=== PATIENT | male | born 1970 | race Caucasian/White ===

== ENCOUNTER 2019-02-03 10:02 | Outpatient (CLI) | payer OTHER, SELFPAY ==
[2019-02-03 11:52] LABS: Cholesterol 257 mg/dL (50-200); Glucose 93 mg/dL (70-100); HDL Cholesterol 51 mg/dL (40-60); LDL CHOLESTEROL 187 mg/dL (<100); Triglyceride 120 mg/dL (30-150)
[2019-02-03 13:38] LABS: CREATININE 0.99 mg/dL (0.70-1.30)
== END 2019-02-03 10:22 ==
PROVIDERS: PCP Family Medicine; Visit Provider Family Medicine
DX: Z00.00 Encounter for general adult medical examination without abnormal findings (principal); E78.5 Hyperlipidemia, unspecified; I10 Essential (primary) hypertension
CPT/HCPCS: 36415; 80061; 82947; 83721; 82565

== ENCOUNTER 2019-03-24 00:34 | Outpatient (CLI) | payer OTHER, SELFPAY ==
--- NOTE | 2019-03-24 07:10 | MERGEMPI_ITS ---
*[facility]* *[facility]* [address] [place] [address] Myocardial Perfusion Imaging - SPECT Regadenoson Date of study: 03/24/2019 *PATIENT PRESENTATION* Height: 182.9cm (72in) Blood Pressure: Weight: 104.5kg (230lb) BSA: 2.33m^2 Referring physician: Den Hooks Ordering physician: Ben Resendiz Impressions: Normal myocardial perfusion and contraction after pharmacological stress. Summary: 1. Myocardial perfusion imaging: No myocardial perfusion defects noted. 2. The calculated left ventricular ejection fraction after stress: 50%. LV global systolic function is low normal. No left ventricular regional motion abnormality. 3. Stress ECG conclusions: The stress ECG is indeterminate due to baseline left bundle branch block. 4. Baseline ECG: Normal sinus rhythm with left bundle branch block. Indication: R07.9, Appropriate Use Criteria: M (May be appropriate). History: REASON FOR VISIT: LEFT BBB FOUND ON EKG DURING PCP VISIT WITH DR. RESENDIZ. PT DENIES ANY ISSUES WITH CHEST PAINS. PT REPORTS HIS LATE PATERNAL GRANDFATHER HAD A QUADRUPLE BIPASS. HIS FATHER HAS HIGH CHOLESTEROL. Risk factors: Family history of coronary artery disease. Obesity. Dyslipidemia. ALLERGIES: NO KNOWN DRUG ALLERGIES. MEDICATIONS: NO SCHEDULED MEDICATIONS. Imaging Technique: Protocol: Regadenoson. Acquisition: Gated SPECT; 1 day - rest/stress. The patient was imaged in the supine position. Attenuation correction used. Isotope administration: - Rest. Tc[99m]-sestamibi. Dose: 11.3mCi. Injection time: 09:25 AM. Injection to stress time: 00:45. - Stress. Tc[99m]-sestamibi. Dose: 36.2mCi. Injection time: 11:20 AM. 1-2 min before end of exercise Baseline ECG: SINUS RHYTHM. LEFT BUNDLE BRANCH BLOCK. HR 58 BPM. Normal sinus rhythm with left bundle branch block. Stress protocol: +--------+--+ + + !Stage !HR!BP (mmHg) !Comments ! +--------+--+ + + !Baseline!58!138/90 (106)! ! +--------+--+ + + !1 min !95!170/82 (111)!Inject Regadenoson.! +--------+--+ + + !3 min !79!148/80 (103)! ! +--------+--+ + + !6 min !73!138/80 (99) ! ! +--------+--+ + + * Stress results: The rate-pressure product for the peak heart rate and blood pressure was 43585lo Hg/min. Stress ECG: STRESS TEST ENDED IN 7 MINUTES & 24 SECONDS. PT EXPERIENCED NO SIGNIFICANT SIDE EFFECTS FROM LEXISCAN INJECTION. NORMAL HEART RATE AND BLOOD PRESSURE RESPONSE TO LEXISCAN INJECTION. NO ECTOPY. NO ANGINA. LEFT BBB AT BASELINE. NO SIGNIFICANT CHANGES IN ST SEGMENTS SEEN. The stress ECG is indeterminate due to baseline left bundle branch block. Myocardial perfusion: Imaging information: gated. The image quality was good. Left ventricular size is normal. No myocardial perfusion defects noted. Ventricular Function (Wall Motion): The calculated left ventricular ejection fraction after stress: 50%. LV global systolic function is low normal. No left ventricular regional motion abnormality. Study data: Den Hooks MD supervised and was readily available during the procedure. This study was interpreted by [facility]. Study status: Routine. Consent: The risks, benefits, and alternatives to the procedure were explained to the patient and informed consent was obtained. Procedure: Initial setup. A baseline ECG was recorded. Surface ECG leads and manual cuff blood pressure measurements were monitored. Heart sounds: Normal. Lung sounds: Normal. Regadenoson stress test. Stress testing was performed, with regadenoson by intravenous bolus, for a total dose of 0.4mgover 10.00sec, followed by a 5ml saline flush. The infusion was terminated due to per protocol. The patient was unable to exercise due to left bundle branch block. Study completion: All catheters inserted during the procedure were removed. The patient tolerated the procedure well and was discharged from the lab. Discharge: The patient left the laboratory in stable condition. Birthdate: Patient birthdate: 1970. Sex: Gender: male. Study date: Study date: 03/24/2019. Study time: 00:01 AM. Signature Documentation: - The imaging portion of this study was interpreted by [employer] Den Hooks MD. - The Stress ECG portion of this study was interpreted by Den Hooks MD. Electronically signed by Den Hooks 03/24/2019 14:00
[2019-03-24] MEDS: Regadenoson 0.4 MG/5 ML SYR IVP (11:45)
== END 2019-03-24 00:54 ==
PROVIDERS: PCP Family Medicine; Visit Provider Family Medicine
DX: R07.9 Chest pain, unspecified (principal); I44.7 Left bundle-branch block, unspecified; I10 Essential (primary) hypertension; E78.5 Hyperlipidemia, unspecified; Z82.49 Family history of ischemic heart disease and other diseases of the circulatory system
CPT/HCPCS: 78452; 93017; J2785

== ENCOUNTER 2019-12-01 07:44 | Outpatient (CLI) | payer OTHER, SELFPAY ==
[2019-12-01 09:03] LABS: Calculated LDL 173 mg/dL (<100); Cholesterol 243 mg/dL (<200); HDL Cholesterol 50 mg/dL (40-60); Triglyceride 101 mg/dL (<150)
== END 2019-12-01 08:04 ==
PROVIDERS: PCP Family Medicine; Visit Provider Internal Medicine Cardiovascular Disease
DX: E78.5 Hyperlipidemia, unspecified (principal)
CPT/HCPCS: 36415; 80061

== ENCOUNTER 2020-03-29 02:33 | Outpatient (CLI) | payer OTHER, SELFPAY ==
[2020-03-29 10:07] LABS: Calculated LDL 98 mg/dL (<100); Cholesterol 168 mg/dL (<200); HDL Cholesterol 53 mg/dL (40-60); Triglyceride 87 mg/dL (<150)
== END 2020-03-29 02:53 ==
PROVIDERS: PCP Family Medicine; Visit Provider Internal Medicine Cardiovascular Disease
DX: E78.5 Hyperlipidemia, unspecified (principal)
CPT/HCPCS: 36415; 80061

== ENCOUNTER 2020-10-12 20:56 | Outpatient (REF) | payer OTHER, SELFPAY ==
[2020-10-12 22:00] LABS: Uric Acid 5.1 mg/dL (3.5-7.2)
== END 2020-10-12 21:16 ==
LOC: LBN 20:56
PROVIDERS: PCP Family Medicine; Visit Provider Physician Assistant
DX: M79.674 Pain in right toe(s) (principal)
CPT/HCPCS: 84550

== ENCOUNTER 2021-01-03 13:03 | Outpatient (REF) | payer OTHER, SELFPAY ==
[2021-01-03 22:19] LABS: CREATININE 1.1 mg/dL (0.70-1.30); Potassium 3.9 mmol/L (3.5-5.1)
== END 2021-01-03 13:04 | disposition home or self-care (01) ==
LOC: LBN 13:03
PROVIDERS: PCP Family Medicine; Visit Provider Family Medicine
DX: I10 Essential (primary) hypertension (principal)
CPT/HCPCS: 82565; 84132

== ENCOUNTER 2022-05-01 14:20 | Outpatient (CLI) | payer OTHER, SELFPAY ==
--- NOTE | 2022-05-01 13:30 | DI.RAD_ITS ---
Exam(s) XR KNEE RT 3V AP,LAT,ISABEL EXAM: XR KNEE RT 3V AP,LAT,ISABEL CLINICAL HISTORY: right knee pain. TECHNIQUE: 2D digital imaging was performed of the right knee. Three views obtained. AP, lateral, a nd Merchant views were obtained. COMPARISON: No exams were available for comparison FINDINGS: BONES: No acute fracture is present. No bony destructive lesion is seen. JOINTS: There is mild narrowing of the medial femoral tibial joint. No joint effusion is seen. SOFT TISSUE: Normal. IMPRESSION: Mild joint space narrowing. DATA REPOSITORY: RADIATION DOSE DELIVERED:
== END 2022-05-01 14:21 | disposition home or self-care (01) ==
LOC: DIORS 14:21
PROVIDERS: PCP Family Medicine; Referring Provider Family Medicine; Visit Provider Student in an Organized Health Care Education/Training Program
DX: M25.561 Pain in right knee (principal)
CPT/HCPCS: 73562